=== PATIENT | male | born 1955 | race Caucasian/White ===

== ENCOUNTER 2016-10-18 14:13 | Emergency (ER) | payer MEDICARE ==
[2016-10-18 14:21] VITALS: O2SAT 97
[2016-10-18 14:58] LABS: Mean Cell Volume 90.2 fl (78-100); Mean Corpuscular Hemoglobin 29.6 pg (26-32); Mean Platelet Volume 8.8 fl (6-9.5); Platelet Count 181 K/mm3 (150-450); Red Blood Count 4.39 M/mm3 (4.1-5.6); Red Cell Distribution Width 13.5 % (11.5-14.0); White Blood Count 4.8 K/mm3 (4.0-10.5)
--- NOTE | 2016-10-18 14:59 | ERPHSYRPT ---
- History of Present Illness Time Seen by Provider: 10/18/16 14:22 Source: patient Patient Subjective Stated Complaint: pt states he has been constipated for a week now, has tried laxitives, and stool softner, is taking pain meds for recent neck surgery, Triage Nursing Assessment: pt alert, walked in, resp easy, sin w/d,abd soft, Physician History: CC: constipation Hx: 61 y/o patient of Dr Raymond had neck surgery about 5 weeks ago (supposed to be in neck brace but not wearing it). He states he has had constipation for the past few weeks since taking post op pain medication. He has not had a good BM for 1 1/2 weeks. He has tried suppositories, and laxatives. Had some chunks of stool this AM. Mild blood this AM. No abd pain. Some left discomfort. Normal urination. No fever or chills. No prior abdominal surgeries. Allergies/Adverse Reactions: No Known Drug Allergies Allergy (Verified 10/18/16 14:23) Home Medications: Citalopram Hydrobromide [ceLEXa] 40 mg PO DAILY 10/18/16 [History] Duloxetine HCl [Cymbalta] 60 mg DAILY 10/18/16 [History] Finasteride 5 mg [Proscar 5 MG] 5 mg DAILY 10/18/16 [History] Fluticasone/Vilanterol [Breo Ellipta 100-25 Mcg INH] 1 ea DAILY 10/18/16 [ History] Hydrocodone Bit/Acetaminophen [[place] 5-325 Tablet] 1 ea Q6H PRN PRN 10/18/16 [ History] Insulin Aspart [NovoLOG Insulin] 10/18/16 [History] Lisinopril 40 mg DAILY 10/18/16 [History] Magnesium Oxide 400 mg [Mag-Ox 400] 400 mg DAILY 10/18/16 [History] Omeprazole 20 MG [Prilosec 20 mg] 40 mg DAILY 10/18/16 [History] Pregabalin [Lyrica 100Mg] 100 mg DAILY 10/18/16 [History] Tamsulosin HCl 0.4 mg [Flomax 0.4 MG] 0.4 mg DAILY 10/18/16 [History] Trazodone HCl [Desyrel] 150 mg HS PRN PRN 10/18/16 [History] Hx Tetanus, Diphtheria Vaccination/Date Given: Yes Hx Influenza Vaccination/Date Given: No Hx Pneumococcal Vaccination/Date Given: No Immunizations Up to Date: Yes - Review of Systems Constitutional: No Fever, No Chills Eyes: No Symptoms Ears, Nose, & Throat: No Symptoms Respiratory: No Cough, No Dyspnea Cardiac: No Chest Pain, No Palpitations Abdominal/Gastrointestinal: Constipation, No Abdominal Pain, No Nausea, No Vomiting, No Diarrhea Genitourinary Symptoms: No Dysuria Musculoskeletal: Neck Pain (post op), No Back Pain Neurological: No Focal Weakness, No Parasthesia All Other Systems: Reviewed and Negative - Past Medical History Pertinent Past Medical History: Yes Respiratory History: COPD Endocrine Medical History: Diabetes Type I Musculoskeletal History: Degenerative Disk Disease - Past Surgical History Past Surgical History: Yes Musculoskeletal: Orthopedic Surgery Other Surgical History: neck surg 2017, left leg fx - Social History Smoking Status: Former smoker Exposure to second hand smoke: Yes Drug Use: none Patient Lives Alone: No - Nursing Vital Signs Nursing Vital Signs: Initial Vital Signs Temperature 97.0 F 10/18/16 14:17 Pulse Rate 72 10/18/16 14:17 Respiratory Rate 16 10/18/16 14:17 Blood Pressure 130/80 10/18/16 14:17 O2 Sat by Pulse Oximetry 97 10/18/16 14:17 Pain Scale Pain Intensity 3 - Physical Exam General Appearance: alert Eye Exam: PERRL/EOMI Ears, Nose, Throat Exam: normal ENT inspection, moist mucous membranes Neck Exam: normal inspection, non-tender, supple Respiratory Exam: normal breath sounds, lungs clear Cardiovascular Exam: regular rate/rhythm Gastrointestinal/Abdomen Exam: soft, No tenderness, No distention, No mass, No guarding Male Genitalia Exam: normal genitalia, No hernia, No testicular tenderness Rectal Exam: normal rectal tone, other (minimal stool in vault) Back Exam: normal inspection, normal range of motion Extremity Exam: normal inspection, normal range of motion Neurologic Exam: alert, oriented x 3, cooperative Skin Exam: warm, dry SpO2 Interpretation: normal SpO2: 97 Oxygen Delivery: Room Air - Course Nursing assessment & vital signs reviewed: Yes - Radiology Exams AAS X-ray Interpretation: Teleradiologist Report (mild fecal stasis, stable nonacute hyperinflated chest) Ordered Tests: Active Orders 24 hr Category Date Time Status Clean Catch Urine Specimen STAT Care 10/18/16 14:40 Active OBSTR/ACUTE ABDOMEN SERIES Stat Exams 10/18/16 14:40 Completed CBC W DIFF Stat Lab 10/18/16 14:52 Completed CMP Stat Lab 10/18/16 14:52 Completed Manual Differential NC Stat Lab 10/18/16 14:52 Completed UA W/RFX UR CULTURE Stat Lab 10/18/16 14:52 Received Lab/Rad Data: Laboratory Result Diagrams 10/18/16 14:52 10/18/16 14:52 Laboratory Results 10/18/16 10/18/16 Range/Units 14:52 14:52 WBC 4.8 (4.0-10.5) K/mm3 RBC 4.39 (4.1-5.6) M/mm3 Hgb 13.0 (12.5-18.0) gm/dl Hct 39.6 L (42-50) % MCV 90.2 (78-100) fl MCH 29.6 (26-32) pg MCHC 32.8 (32-36) g/dl RDW 13.5 (11.5-14.0) % Plt Count 181 (150-450) K/mm3 MPV 8.8 (6-9.5) fl Sodium 143 (136-145) mEq/L Potassium 4.3 (3.5-5.1) mEq/L Chloride 106 (98-107) mEq/L Carbon Dioxide 31.6 (21-32) mEq/L Anion Gap 9.5 (5-15) MEQ/L BUN 13 (9-20) mg/dL Creatinine 1.12 (0.55-1.30) mg/dl Estimated GFR > 60 ML/MIN Glucose 81 (70-110) MG/DL Calcium 8.7 (8.5-10.1) mg/dL Total Bilirubin 0.60 (0.2-1.0) mg/dL AST 8 L (15-37) U/L ALT 14 (12-78) U/L Alkaline Phosphatase 92 (46-116) U/L Serum Total Protein 6.4 (6.4-8.2) gm/dL Albumin 3.5 (3.4-5.0) g/dL - Progress Progress Note: 10/18/16 15:00 He took off his insulin pump. It was replaced right away. 10/18/16 15:31 The patient is stable. No abd tenderness. Will use mag citrate and discussed bowel regimen with prune juice and miralax. Counseled pt/family regarding: lab results, diagnosis, need for follow-up, rad results - Departure Time of Disposition: 15:32 Departure Disposition: Home Clinical Impression: post op constipation Condition: Stable Critical Care Time: No Referrals: ADRYAN RAYMOND MD [Primary Care Provider] - Instructions: Constipation Additional Instructions: Take one bottle mag citrate today. Get miralax and prune juice to use every evening. Follow up with Dr Raymond. Return for fever, abdominal pain, passing blood, or vomiting.
[2016-10-18 15:20] LABS: ALBUMIN 3.5 g/dL (3.4-5.0); ALKALINE PHOSPHATASE 92 U/L (46-116); ANION GAP 9.5 MEQ/L (5-15); BLOOD UREA NITROGEN 13 mg/dL (9-20); CHLORIDE 106 mEq/L (98-107); Carbon Dioxide 31.6 mEq/L (21-32); Glucose 81 MG/DL (70-110); Potassium 4.3 mEq/L (3.5-5.1); SGOT/AST 8 U/L (15-37); SGPT/ALT 14 U/L (12-78); SODIUM 143 mEq/L (136-145); Total Protein 6.4 gm/dL (6.4-8.2)
--- NOTE | 2016-10-18 15:24 | XRAY ---
Indication: Left lower quadrant pain. Obstipation. Comparison: Chest exam October 11, 2015. 2 views of the abdomen nonacute and nonobstructed with mild diffuse scattered colonic fecal debris. Solid organs unremarkable. Osseous structures intact with spinal degenerative changes. Single frontal chest again demonstrates hyperinflated clear lungs with normal heart. Bony thorax intact again with mild degenerative changes. Impression: 1. Mild fecal stasis without obstruction. 2. Stable nonacute hyperinflated chest.
[2016-10-18 15:42] VITALS: BP 130/72; PULSE 84
[2016-10-18 16:18] LABS: BAND 1 % (0.0-2.0); Eosinophil 3 % (0.00-3.0); Platelet Estimate NORMAL (NORMAL); Total Cells Counted 100
== END 2016-10-18 15:57 | disposition home or self-care (01) ==
LOC: ED 14:13
DX: K59.03 Drug induced constipation (principal); T50.995A Adverse effect of other drugs, medicaments and biological substances, initial encounter; Z98.890 Other specified postprocedural states
CPT/HCPCS: 36415; 74022; 80053; 85025; 99283

== ENCOUNTER 2019-01-14 09:06 | Day surgery (SDC) | payer OTHER ==
[2019-01-14] MEDS ORDERED: Xylocaine-Mpf 2% 5 Ml Vial IJ ONE (09:07)
[2019-01-14] MEDS ORDERED: DIPRIVAN 200 MG/20 ML IV ONE (10:41)
[2019-01-14] MEDS ORDERED: Ketamine HCl 50 MG/ML ONE (10:41)
--- NOTE | 2019-01-14 12:47 | XRAY ---
Indication: Bilateral L3-S1 MBB. Intraoperative fluoroscopy was provided for 14 seconds. Single digital spot image submitted for interpretation demonstrates posterior needle tips projecting over the expected course of the left and right L3-S1 nerve roots. Correlate with intraoperative findings/report.
--- NOTE | 2019-01-14 13:02 | XRAY ---
14 seconds fluoroscopy time in surgery for bilateral L3-S1 MBB.
[2019-01-14] MEDS ORDERED: Lactated Ringers 1,000 ML IV ONE (18:20)
== END 2019-01-14 11:12 | disposition home or self-care (01) ==
LOC: SDC-PAIN 09:06
PROVIDERS: ATTEND Psychiatry & Neurology Pain Medicine
DX: M47.816 Spondylosis without myelopathy or radiculopathy, lumbar region (principal); E11.9 Type 2 diabetes mellitus without complications; J44.9 Chronic obstructive pulmonary disease, unspecified; G47.30 Sleep apnea, unspecified; C34.90 Malignant neoplasm of unspecified part of unspecified bronchus or lung; Z79.899 Other long term (current) drug therapy
CPT/HCPCS: 64493; 64494; 64495; 72020; 77002; 82962; J2704

== ENCOUNTER 2019-02-18 08:54 | Day surgery (SDC) | payer MEDICARE, OTHER ==
[2019-02-18] MEDS ORDERED: Marcaine 0.5% SDV 10 ML IJ ONE (08:55)
[2019-02-18] MEDS ORDERED: DIPRIVAN 200 MG/20 ML IV ONE (10:02)
[2019-02-18] MEDS ORDERED: Ketamine HCl 50 MG/ML ONE (10:02)
--- NOTE | 2019-02-18 11:02 | XRAY ---
Indication: Bilateral L3-S1 MBB. Intraoperative fluoroscopy was provided for 8 seconds. Single digital spot image submitted for interpretation demonstrates posterior needle tips projecting over the expected course of the left and right L3-S1 nerve roots. Correlate with intraoperative findings/report.
--- NOTE | 2019-02-18 11:06 | XRAY ---
8 seconds fluoroscopy time in surgery for bilateral L3-S1 MBB.
[2019-02-18] MEDS ORDERED: Lactated Ringers 1,000 ML IV ONE (16:00)
== END 2019-02-18 10:30 | disposition home or self-care (01) ==
LOC: SDC-PAIN 08:54
PROVIDERS: ATTEND Psychiatry & Neurology Pain Medicine
DX: M17.0 Bilateral primary osteoarthritis of knee (principal); E11.9 Type 2 diabetes mellitus without complications; G47.30 Sleep apnea, unspecified; J44.9 Chronic obstructive pulmonary disease, unspecified; Z79.899 Other long term (current) drug therapy
CPT/HCPCS: 64493; 64494; 64495; 72020; 77002; 82962; J2704

== ENCOUNTER 2019-04-08 07:55 | Day surgery (SDC) | payer MEDICARE, OTHER ==
[2019-04-08] MEDS ORDERED: Depo-Medrol 40 MG/ML IM ONE (07:56)
[2019-04-08] MEDS ORDERED: Marcaine 0.5% SDV 10 ML IJ ONE (07:56)
[2019-04-08] MEDS ORDERED: Xylocaine 1% Vial 30 ML PF IJ ONE (07:56)
[2019-04-08] MEDS ORDERED: DIPRIVAN 200 MG/20 ML IV ONE (08:55)
[2019-04-08] MEDS ORDERED: Ketamine HCl 50 MG/ML ONE (08:55)
--- NOTE | 2019-04-08 11:51 | XRAY ---
Indication: Left L3-S1 RFA. Intraoperative fluoroscopy was provided for 12 seconds. 3 digital spot images submitted for interpretation demonstrate posterior needle tips projecting over the expected course of the left L3-S1 nerve roots. Correlate with intraoperative findings/report.
--- NOTE | 2019-04-08 11:57 | XRAY ---
12 seconds fluoroscopy time in surgery for left L3-S1 RFA.
[2019-04-08] MEDS ORDERED: Lactated Ringers 1,000 ML IV ONE (13:08)
== END 2019-04-08 09:48 | disposition home or self-care (01) ==
LOC: SDC-PAIN 07:55
PROVIDERS: ATTEND Psychiatry & Neurology Pain Medicine
DX: M47.816 Spondylosis without myelopathy or radiculopathy, lumbar region (principal); M47.817 Spondylosis without myelopathy or radiculopathy, lumbosacral region; E11.9 Type 2 diabetes mellitus without complications; J44.9 Chronic obstructive pulmonary disease, unspecified; G47.30 Sleep apnea, unspecified; Z79.899 Other long term (current) drug therapy
CPT/HCPCS: 64635; 64636; 72100; 77002; 82962; J1030; J2001; J2704

== ENCOUNTER 2019-08-26 08:58 | Day surgery (SDC) | payer MEDICARE ==
[2019-08-26] MEDS ORDERED: Marcaine 0.5% SDV 10 ML IM ONE (08:59)
[2019-08-26] MEDS ORDERED: Ketamine HCl 50 MG/ML ONE (10:00)
[2019-08-26] MEDS ORDERED: DIPRIVAN 200 MG/20 ML IV ONE (10:00)
--- NOTE | 2019-08-26 11:04 | XRAY ---
Indication: Right knee genicular nerve block. Intraoperative fluoroscopy was provided for 7 seconds. 2 digital spot images submitted for interpretation demonstrate anterior needle tips projecting medial/lateral supracondylar and medial tibial plateau of the right knee. Correlate with intraoperative findings/report.
--- NOTE | 2019-08-26 11:04 | XRAY ---
Indication: Left knee genicular nerve block. Intraoperative fluoroscopy was provided for 12 seconds. 2 digital spot images submitted for interpretation demonstrate anterior needle tips projecting medial/lateral supracondylar and medial tibial plateau of the left knee. Correlate with intraoperative findings/report. Incidental proximal tibia intramedullary brenda and transverse screw.
--- NOTE | 2019-08-26 11:52 | XRAY ---
7 seconds fluoroscopy time in surgery for right genicular nerve block.
--- NOTE | 2019-08-26 12:02 | XRAY ---
12 seconds fluoroscopy time in surgery for left genicular nerve block.
[2019-08-26] MEDS ORDERED: Lactated Ringers 1,000 ML IV ONE (14:53)
== END 2019-08-26 10:30 | disposition home or self-care (01) ==
LOC: SDC-PAIN 08:58
PROVIDERS: ATTEND Psychiatry & Neurology Pain Medicine
DX: M17.0 Bilateral primary osteoarthritis of knee (principal); E11.9 Type 2 diabetes mellitus without complications; G47.30 Sleep apnea, unspecified; J44.9 Chronic obstructive pulmonary disease, unspecified; Z79.899 Other long term (current) drug therapy
CPT/HCPCS: 64454; 73560; 77002; 82962; J2704

== ENCOUNTER 2019-09-30 08:56 | Day surgery (SDC) | payer MEDICARE ==
[~2019-09-30 08:56] MED LIST: DIPRIVAN 200 MG/20 ML IV ONE; Ketamine HCl 50 MG/ML ONE
[2019-09-30] MEDS ORDERED: BUPIVACAINE 0.5% VIAL IJ ONE (08:57)
[2019-09-30] MEDS ORDERED: Xylocaine 1% Vial 30 ML PF IJ ONE (08:57)
[2019-09-30] MEDS ORDERED: Depo-Medrol 40 MG/ML IM ONE (08:57)
[2019-09-30] MEDS ORDERED: SUBLIMAZE 100 MCG/2 ML ONE (09:38)
--- NOTE | 2019-09-30 12:00 | XRAY ---
Indication: Right knee genicular nerve ablation. Intraoperative fluoroscopy was provided for 21 seconds. 2 digital spot images of the right knee submitted for interpretation demonstrates anterior needle tips projecting medial/lateral supracondylar and medial tibial plateau. Correlate with intraoperative findings/report.
--- NOTE | 2019-09-30 12:05 | XRAY ---
21 seconds fluoroscopy time in surgery for right genicular nerve ablation.
[2019-09-30] MEDS ORDERED: Lactated Ringers 1,000 ML IV ONE (14:33)
== END 2019-09-30 10:14 | disposition home or self-care (01) ==
LOC: SDC-PAIN 08:56
PROVIDERS: ATTEND Psychiatry & Neurology Pain Medicine
DX: M17.11 Unilateral primary osteoarthritis, right knee (principal); E11.9 Type 2 diabetes mellitus without complications; J44.9 Chronic obstructive pulmonary disease, unspecified; G47.30 Sleep apnea, unspecified; C34.90 Malignant neoplasm of unspecified part of unspecified bronchus or lung; Z79.899 Other long term (current) drug therapy
CPT/HCPCS: 64624; 73560; 77002; 82962; J1030; J2001; J2704; J3010

== ENCOUNTER 2022-03-17 20:06 | Emergency (ER) | payer MEDICARE ==
--- NOTE | 2022-03-17 20:18 | ERPHSYRPT ---
- History of Present Illness Time Seen by Provider: 03/17/22 20:18 Source: patient, family Exam Limitations: no limitations Physician History: This is a 66-year-old white male patient who was brought into the emergency department by the patient's spouse because of trending elevated blood sugar levels. He has been more weak than typical. 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 He was placed on a Catapres patch which the patient removed because it made him too sleepy. Patient also is on trazodone which he did take last night as well. Patient's blood sugar yesterday afternoon was 530 based on the blood draw that was performed. Upon arrival to the emergency department today was 460. His vital signs are stable. He is lethargic but arousable. He has a history of hypertension, insulin-dependent diabetes and gastroesophageal reflux disease. His states that he is going downhill over the last couple of months. Approximately 2 months ago he has had a change in his insulin medication. Patient's spouse thinks that he is been losing muscle mass and weight in the last couple months as well. He has decreased appetite. Timing/Duration: worse (Symptoms worsening over the last couple of months) Severity: moderate Associated Symptoms: weakness, No shortness of breath, No chest pain, No fever Allergies/Adverse Reactions: No Known Drug Allergies Allergy (Verified 03/17/22 20:17) Home Medications: Magnesium Oxide 400 mg [Mag-Ox 400] 250 mg PO DAILY 10/18/16 [History] Omeprazole 20 MG [Prilosec 20 mg] 40 mg PO DAILY 10/18/16 [History] Trazodone HCl [Desyrel] 150 mg PO HS PRN PRN 10/18/16 [History] lisinopriL [Lisinopril] 20 mg DAILY 10/18/16 [History] Albuterol Sulfate [Proair Digihaler] 90 mcg IH Q4HPRN PRN 03/17/22 [History] Cholecalciferol (Vitamin D3) [D3 Dots] 50 mcg PO 03/17/22 [History] Clonidine HCl Tts-1 Patch [Catapres-TTS 1 PATCH] 0.1 mg TD WEEKLY 03/17/22 [History] Cyanocobalamin (Vitamin B-12) [B-12] 500 mcg PO DAILY 03/17/22 [History] Fluticasone/Umeclidin/Vilanter [Trelegy Ellipta 200-62.5-25] 1 each IH DAILY 03/17/22 [History] Furosemide 20 mg [Lasix 20 mg] 10 mg PO DAILY 03/17/22 [History] Hydrocodone/Acetaminophen [Hydrocodone-Acetamin 10-325 mg] 1 each PO QID 03/17/22 [History] Insulin Glargine,Hum.rec.anlog [Basaglar Kwikpen U-100] 100 unit SQ DAILY 03/17/22 [History] Insulin Lispro-Aabc [Lyumjev Kwikpen U-100] 100 unit SQ DAILY 03/17/22 [History] Levothyroxine Sodium 25 Mcg [Synthroid 25 Mcg] 25 mcg PO DAILY 03/17/22 [History] Potassium Gluconate [Potassium] 595 mg PO DAILY 03/17/22 [History] Zinc Gluconate [Zinc] 50 mg PO 03/17/22 [History] clonazePAM [Clonazepam] 1 mg PO TID 03/17/22 [History] Hx Tetanus, Diphtheria Vaccination/Date Given: Yes Hx Influenza Vaccination/Date Given: No Hx Pneumococcal Vaccination/Date Given: No Travel Risk - International Travel Have you traveled outside of the country in past 3 weeks: No - Coronavirus Screening Are you exhibiting any of the following symptoms?: No Close contact with a COVID-19 positive Pt in past 14-21 Days: No - Review of Systems Constitutional: Weakness Eyes: No Symptoms Ears, Nose, & Throat: No Symptoms Respiratory: No Symptoms Cardiac: No Symptoms Abdominal/Gastrointestinal: No Symptoms Genitourinary Symptoms: No Symptoms Musculoskeletal: No Symptoms Skin: No Symptoms Neurological: Lethargy (Arousable) Psychological: No Symptoms Endocrine: No Symptoms Hematologic/Lymphatic: No Symptoms Immunological/Allergic: No Symptoms All Other Systems: Reviewed and Negative - Past Medical History Pertinent Past Medical History: Yes Respiratory History: COPD Endocrine Medical History: Diabetes Type I Musculoskeletal History: Degenerative Disk Disease - Past Surgical History Past Surgical History: Yes Musculoskeletal: Orthopedic Surgery Other Surgical History: neck surg 2017, left leg fx - Social History Smoking Status: Former smoker Exposure to second hand smoke: Yes Drug Use: none Patient Lives Alone: No - Nursing Vital Signs Nursing Vital Signs: Initial Vital Signs Temperature 97.7 F 03/17/22 20:17 Pulse Rate 101 H 03/17/22 20:17 Respiratory Rate 16 03/17/22 20:17 Blood Pressure 117/83 03/17/22 20:17 O2 Sat by Pulse Oximetry 97 03/17/22 20:17 Pain Scale Pain Intensity 0 - Physical Exam General Appearance: lethargy (But arousable), thin Eye Exam: PERRL/EOMI, eyes nml inspection Ears, Nose, Throat Exam: normal ENT inspection, moist mucous membranes Neck Exam: normal inspection, non-tender, supple, full range of motion Respiratory Exam: normal breath sounds, lungs clear, airway intact, No chest tenderness, No respiratory distress Cardiovascular Exam: regular rate/rhythm, normal heart sounds, normal peripheral pulses Gastrointestinal/Abdomen Exam: soft, normal bowel sounds, No tenderness Rectal Exam: not done Back Exam: normal inspection, normal range of motion, No CVA tenderness, No vertebral tenderness Extremity Exam: normal inspection, normal range of motion, pelvis stable Neurologic Exam: cooperative, mirror installer II-XII nml as tested, other (Patient is mildly lethargic but arousable.) Skin Exam: normal color, warm, dry Lymphatic Exam: No adenopathy SpO2 Interpretation: normal O2 Delivery: Room Air Ordered Tests: Active Orders 24 hr Category Date Time Status Cath for Specimen-Straight STAT Care 03/17/22 21:07 Active IV Insertion STAT Care 03/17/22 20:37 Active Pulse Oximetry (ED) STAT Care 03/17/22 20:37 Active HEAD WITHOUT CONTRAST [CT] Stat Exams 03/17/22 21:06 Taken CBC W DIFF Stat Lab 03/17/22 20:54 Completed CMP Stat Lab 03/17/22 20:54 Completed ETHYL ALCOHOL Stat Lab 03/17/22 21:20 Completed POCT GLUCOSE Stat Lab 03/17/22 22:18 Completed UA W/RFX UR CULTURE Stat Lab 03/17/22 21:13 Completed Urine Triage Profile Stat Lab 03/17/22 21:13 Completed Medication Summary Generic Name Dose Route Start Last Admin Trade Name Freq PRN Reason Stop Dose Admin Sodium Chloride 1,000 mls @ 100 mls/hr 03/17/22 20:45 03/17/22 22:27 Sodium Chloride 0.9% 1000 Ml IV 02/13/23 20:44 999 mls/hr .Q10H NICOLASA Infusion Sodium Chloride 1,000 mls @ 1,000 mls/hr 03/17/22 23:00 03/17/22 23:12 Sodium Chloride 0.9% 1000 Ml IV 04/16/22 23:59 Not Given .Q1H NICOLASA Discontinued Medications Generic Name Dose Route Start Last Admin Trade Name Gabi PRN Reason Stop Dose Admin Insulin Human Regular 5 unit 03/17/22 20:38 03/17/22 21:15 Insulin Regular, Human 1 Unit IV 03/17/22 20:39 5 unit STAT ONE Administration Insulin Human Regular Confirm 03/17/22 21:16 Insulin Regular, Human 1 Unit Administered 03/17/22 21:17 Dose 5 unit .ROUTE .[employer] ONE Lab/Rad Data: Laboratory Result Diagrams 03/17/22 20:54 03/17/22 20:54 Laboratory Results 03/17/22 03/17/22 03/17/22 Range/Units 22:18 21:30 21:30 WBC (4.0-10.5) x10^3/uL RBC (4.1-5.6) x10^6/uL Hgb (12.5-18.0) g/dL Hct (42-50) % MCV (78-100) fL MCH (26-32) pg MCHC (32-36) g/dL RDW (11.5-14.0) % Plt Count (150-450) x10^3/uL MPV (7.5-11.0) fL Gran % (36.0-66.0) % Immature Gran % (Auto) (0.00-0.4) % Nucleat RBC Rel Count (0.00-0.1) % Eos # (Auto) (0-0.5) x10^3/uL Immature Gran # (Auto) (0.00-0.03) x10^3u/L Absolute Lymphs (auto) (1.0-4.6) x10^3/uL Absolute Monos (auto) (0.0-1.3) x10^3/uL Absolute Nucleated RBC (0.00-0.01) x10^3u/L Lymphocytes % (24.0-44.0) % Monocytes % (0.0-12.0) % Eosinophils % (0.00-5.0) % Basophils % (0.0-0.4) % Absolute Granulocytes (1.4-6.9) x10^3/uL Basophils # (0-0.4) x10^3/uL Sodium (137-145) mmol/L Potassium (3.5-5.1) mmol/L Chloride (98-107) mmol/L Carbon Dioxide (22-30) mmol/L Anion Gap (5-15) MEQ/L BUN (9-20) mg/dL Creatinine (0.66-1.25) mg/dL Estimated GFR ML/MIN Glucose (74-106) mg/dL POC Glucometer 159 H (74 to 106) mg/dL Calcium (8.4-10.2) mg/dL Total Bilirubin (0.2-1.3) mg/dL AST (17-59) U/L ALT (0-50) U/L Alkaline Phosphatase (38-126) U/L Ammonia < 9 L (9-30) umol/L Serum Total Protein (6.3-8.2) g/dL Albumin (3.5-5.0) g/dL Urine Color (Yellow) Urine Appearance (Clear) Urine pH (4.6-8.0) Ur Specific [place] (1.005-1.030) Urine Protein (Negative) Urine Glucose (UA) (Negative) mg/dL Urine Ketones (Negative) Urine Blood (Negative) Urine Nitrite (Negative) Urine Bilirubin (Negative) Urine Urobilinogen (0.2) mg/dL Ur Leukocyte Esterase (Negative) U Hyaline Cast (Auto) (0-2) /LPF Urine Microscopic RBC (0-5) /HPF Urine Microscopic WBC (0-5) /HPF Ur Epithelial Cells (None Seen) /HPF Urine Bacteria (None Seen) /HPF Urine Culture Reflexed (NO) Urine Opiates Level (NEGATIVE) Ur Methadone (NEGATIVE) Urine Barbiturates (NEGATIVE) Ur Phencyclidine (PCP) (NEGATIVE) Urine Amphetamine (NEGATIVE) U Benzodiazepine Level (NEGATIVE) Urine Cocaine (NEGATIVE) Urine Marijuana (THC) (NEGATIVE) Ethyl Alcohol (0-10) mg/dL Influenza Type A Ag NEGATIVE (NEGATIVE) Influenza Type B Ag NEGATIVE (NEGATIVE) RSV (PCR) NEGATIVE (Negative) SARS-CoV-2 (PCR) POSITIVE A (NEGATIVE) 03/17/22 03/17/22 03/17/22 Range/Units 21:20 21:13 21:13 WBC (4.0-10.5) x10^3/uL RBC (4.1-5.6) x10^6/uL Hgb (12.5-18.0) g/dL Hct (42-50) % MCV (78-100) fL MCH (26-32) pg MCHC (32-36) g/dL RDW (11.5-14.0) % Plt Count (150-450) x10^3/uL MPV (7.5-11.0) fL Gran % (36.0-66.0) % Immature Gran % (Auto) (0.00-0.4) % Nucleat RBC Rel Count (0.00-0.1) % Eos # (Auto) (0-0.5) x10^3/uL Immature Gran # (Auto) (0.00-0.03) x10^3u/L Absolute Lymphs (auto) (1.0-4.6) x10^3/uL Absolute Monos (auto) (0.0-1.3) x10^3/uL Absolute Nucleated RBC (0.00-0.01) x10^3u/L Lymphocytes % (24.0-44.0) % Monocytes % (0.0-12.0) % Eosinophils % (0.00-5.0) % Basophils % (0.0-0.4) % Absolute Granulocytes (1.4-6.9) x10^3/uL Basophils # (0-0.4) x10^3/uL Sodium (137-145) mmol/L Potassium (3.5-5.1) mmol/L Chloride (98-107) mmol/L Carbon Dioxide (22-30) mmol/L Anion Gap (5-15) MEQ/L BUN (9-20) mg/dL Creatinine (0.66-1.25) mg/dL Estimated GFR ML/MIN Glucose (74-106) mg/dL POC Glucometer (74 to 106) mg/dL Calcium (8.4-10.2) mg/dL Total Bilirubin (0.2-1.3) mg/dL AST (17-59) U/L ALT (0-50) U/L Alkaline Phosphatase (38-126) U/L Ammonia (9-30) umol/L Serum Total Protein (6.3-8.2) g/dL Albumin (3.5-5.0) g/dL Urine Color Yellow (Yellow) Urine Appearance Clear (Clear) Urine pH 6.0 (4.6-8.0) Ur Specific [place] 1.025 (1.005-1.030) Urine Protein Negative (Negative) Urine Glucose (UA) 250 A (Negative) mg/dL Urine Ketones Negative (Negative) Urine Blood Negative (Negative) Urine Nitrite Negative (Negative) Urine Bilirubin Negative (Negative) Urine Urobilinogen 0.2 (0.2) mg/dL Ur Leukocyte Esterase Negative (Negative) U Hyaline Cast (Auto) NONE SEEN (0-2) /LPF Urine Microscopic RBC 0-2 (0-5) /HPF Urine Microscopic WBC 0-2 (0-5) /HPF Ur Epithelial Cells None Seen (None Seen) /HPF Urine Bacteria None Seen (None Seen) /HPF Urine Culture Reflexed NO (NO) Urine Opiates Level NEGATIVE (NEGATIVE) Ur Methadone NEGATIVE (NEGATIVE) Urine Barbiturates NEGATIVE (NEGATIVE) Ur Phencyclidine (PCP) NEGATIVE (NEGATIVE) Urine Amphetamine NEGATIVE (NEGATIVE) U Benzodiazepine Level NEGATIVE (NEGATIVE) Urine Cocaine NEGATIVE (NEGATIVE) Urine Marijuana (THC) NEGATIVE (NEGATIVE) Ethyl Alcohol < 10 (0-10) mg/dL Influenza Type A Ag (NEGATIVE) Influenza Type B Ag (NEGATIVE) RSV (PCR) (Negative) SARS-CoV-2 (PCR) (NEGATIVE) 03/17/22 03/17/22 Range/Units 20:54 20:54 WBC 7.9 (4.0-10.5) x10^3/uL RBC 5.07 (4.1-5.6) x10^6/uL Hgb 14.3 (12.5-18.0) g/dL Hct 45.0 (42-50) % MCV 88.8 (78-100) fL MCH 28.2 (26-32) pg MCHC 31.8 L (32-36) g/dL RDW 13.3 (11.5-14.0) % Plt Count 356 (150-450) x10^3/uL MPV 9.0 (7.5-11.0) fL Gran % 81.5 H (36.0-66.0) % Immature Gran % (Auto) 0.9 H (0.00-0.4) % Nucleat RBC Rel Count 0.0 (0.00-0.1) % Eos # (Auto) 0.06 (0-0.5) x10^3/uL Immature Gran # (Auto) 0.07 H (0.00-0.03) x10^3u/L Absolute Lymphs (auto) 0.69 L (1.0-4.6) x10^3/uL Absolute Monos (auto) 0.61 (0.0-1.3) x10^3/uL Absolute Nucleated RBC 0.00 (0.00-0.01) x10^3u/L Lymphocytes % 8.7 L (24.0-44.0) % Monocytes % 7.7 (0.0-12.0) % Eosinophils % 0.8 (0.00-5.0) % Basophils % 0.4 (0.0-0.4) % Absolute Granulocytes 6.45 (1.4-6.9) x10^3/uL Basophils # 0.03 (0-0.4) x10^3/uL Sodium 131 L (137-145) mmol/L Potassium 4.3 (3.5-5.1) mmol/L Chloride 94 L (98-107) mmol/L Carbon Dioxide 29 (22-30) mmol/L Anion Gap 12.1 (5-15) MEQ/L BUN 22 H (9-20) mg/dL Creatinine 0.78 (0.66-1.25) mg/dL Estimated GFR > 60.0 ML/MIN Glucose 505 H* (74-106) mg/dL POC Glucometer (74 to 106) mg/dL Calcium 9.4 (8.4-10.2) mg/dL Total Bilirubin 0.50 (0.2-1.3) mg/dL AST 23 (17-59) U/L ALT 17 (0-50) U/L Alkaline Phosphatase 183 H (38-126) U/L Ammonia (9-30) umol/L Serum Total Protein 7.2 (6.3-8.2) g/dL Albumin 4.1 (3.5-5.0) g/dL Urine Color (Yellow) Urine Appearance (Clear) Urine pH (4.6-8.0) Ur Specific [place] (1.005-1.030) Urine Protein (Negative) Urine Glucose (UA) (Negative) mg/dL Urine Ketones (Negative) Urine Blood (Negative) Urine Nitrite (Negative) Urine Bilirubin (Negative) Urine Urobilinogen (0.2) mg/dL Ur Leukocyte Esterase (Negative) U Hyaline Cast (Auto) (0-2) /LPF Urine Microscopic RBC (0-5) /HPF Urine Microscopic WBC (0-5) /HPF Ur Epithelial Cells (None Seen) /HPF Urine Bacteria (None Seen) /HPF Urine Culture Reflexed (NO) Urine Opiates Level (NEGATIVE) Ur Methadone (NEGATIVE) Urine Barbiturates (NEGATIVE) Ur Phencyclidine (PCP) (NEGATIVE) Urine Amphetamine (NEGATIVE) U Benzodiazepine Level (NEGATIVE) Urine Cocaine (NEGATIVE) Urine Marijuana (THC) (NEGATIVE) Ethyl Alcohol (0-10) mg/dL Influenza Type A Ag (NEGATIVE) Influenza Type B Ag (NEGATIVE) RSV (PCR) (Negative) SARS-CoV-2 (PCR) (NEGATIVE) - Progress Progress: improved Progress Note: 03/17/22 22:23 CAT scan of the head without contrast shows no acute intracranial abnormality 03/17/22 23:15 Medical decision making: This patient is more awake and alert on reexamination. He tested positive for COVID-19 infection. After evaluation of his laboratory data and CAT scan of the head, the patient has no acute issue other than hyperglycemia which is now improved. He does have some chronic narcotic use/abuse issues and he is being treated as an outpatient. I discussed plans with him and his in terms of stopping the Catapres patch altogether until he speaks with his prescribing provider. He should space out his Klonopin and trazodone medication. I told him just to take Klonopin no sooner than 12 hours before or after his trazodone medication and only take the Klonopin once a day only if needed. Patient is to drink plenty of fluids. He also needs to discuss his lack of appetite with his primary care provider and his hyperglycemic issues. Patient does not have DKA. Counseled pt/family regarding: lab results, diagnosis, need for follow-up, rad results - Departure Departure Disposition: Home Clinical Impression: Hyperglycemia, Sedated due to multiple medications, COVID-19 virus infection Condition: Stable Critical Care Time: No Referrals: MARC ARRINGTON MD [Primary Care Provider] - Follow up/PCP as directed Additional Instructions: Drink plenty of fluids. Stop your Catapres. Monitor your blood sugar closely and treat high blood sugar according to your sliding scale. Only use Klonopin once a day and no sooner than 12 hours before or 12 hours after your nighttime trazodone. Quarantine yourself for 7 days. Follow-up with your primary care physician after 7 days quarantine.
[2022-03-17 20:27] VITALS: O2SAT 97
[2022-03-17] MEDS ORDERED: HUMULIN R IV ONE (20:38)
[2022-03-17] MEDS ORDERED: Sodium Chloride 0.9% 1000 ML 1,000 ML IV SCH ×2 (20:45→23:00)
[2022-03-17 20:57] LABS: Absolute Neutrophil Ct (ANC) 6.45 x10^3/uL (1.4-6.9); Basophil (Absolute #) 0.03 x10^3/uL (0-0.4); Eosinophil % 0.8 % (0.00-5.0); Eosinophil (Absolute #) 0.06 x10^3/uL (0-0.5); Hemoglobin 14.3 g/dL (12.5-18.0); Lymphocyte (Absolute #) 0.69 x10^3/uL (1.0-4.6); Lymphocytes % 8.7 % (24.0-44.0); Mean Cell Volume 88.8 fL (78-100); Mean Corpuscular Hemoglobin 28.2 pg (26-32); Mean Corpuscular Hgb Concent. 31.8 g/dL (32-36); Monocyte (Absolute #) 0.61 x10^3/uL (0.0-1.3); Monocytes % 7.7 % (0.0-12.0); Neutrophil % 81.5 % (36.0-66.0); Platelet Count 356 x10^3/uL (150-450); Red Blood Count 5.07 x10^6/uL (4.1-5.6); Red Cell Distribution Width 13.3 % (11.5-14.0); White Blood Count 7.9 x10^3/uL (4.0-10.5)
[2022-03-17 21:11] LABS: ALBUMIN 4.1 g/dL (3.5-5.0); ALKALINE PHOSPHATASE 183 U/L (38-126); ANION GAP 12.1 MEQ/L (5-15); BLOOD UREA NITROGEN 22 mg/dL (9-20); CHLORIDE 94 mmol/L (98-107); Calcium 9.4 mg/dL (8.4-10.2); Carbon Dioxide 29 mmol/L (22-30); Creatinine 1 0.78 mg/dL (0.66-1.25); EST GLOMERULAR FILTRATION RATE > 60.0 ML/MIN; Potassium 4.3 mmol/L (3.5-5.1); SGOT/AST 23 U/L (17-59); SGPT/ALT 17 U/L (0-50); SODIUM 131 mmol/L (137-145); Total Protein 7.2 g/dL (6.3-8.2)
[2022-03-17] MEDS ORDERED: HUMULIN R ONE (21:16)
[2022-03-17 21:21] LABS: Glucose 505 mg/dL (74-106)
[2022-03-17 22:02] LABS: Bacteria None Seen /HPF (None Seen); Bilirubin Negative (Negative); Blood Negative (Negative); Epithelial Cells None Seen /HPF (None Seen); Glucose, Urine 250 mg/dL (Negative); Hyaline Casts NONE SEEN /LPF (0-2); Ketones Negative (Negative); Leukocyte Esterase Negative (Negative); Nitrite Negative (Negative); Protein,Urine Dip Negative (Negative); RBC 0-2 /HPF (0-5); Specific Gravity 1.025 (1.005-1.030); Urobilinogen 0.2 mg/dL (0.2); WBC 0-2 /HPF (0-5)
[2022-03-17 22:03] LABS: ADD URINE CULTURE? NO (NO); Appearance Clear (Clear)
[2022-03-17 22:05] LABS: Amphetamine,Urine NEGATIVE (NEGATIVE); Barbiturate,Urine NEGATIVE (NEGATIVE); Benzodiazepine,Urine NEGATIVE (NEGATIVE); Cocaine,Urine NEGATIVE (NEGATIVE); Methadone,Urine NEGATIVE (NEGATIVE); Opiate,Urine NEGATIVE (NEGATIVE); PCP,Urine NEGATIVE (NEGATIVE); THC,Urine NEGATIVE (NEGATIVE)
[2022-03-17 22:19] LABS: INFLUENZA A NEGATIVE (NEGATIVE); INFLUENZA B NEGATIVE (NEGATIVE); RESPIRATORY SYNCTIAL VIRUS NEGATIVE (Negative)
[2022-03-17 22:37] LABS: SARS-CoV-2 Xpert Express POSITIVE (NEGATIVE)
[2022-03-17 23:08] VITALS: BP 122/76; PULSE 89
--- NOTE | 2022-03-18 08:59 | XRAY ---
Indication: Acute mental status change. Elevated blood sugar. Multiple contiguous axial images obtained through the head without contrast. Comparison: October 18, 2015 Normal appearing brain parenchyma, ventricles, and bony calvarium for patient's age. Again moderate mucosal thickening of both ethmoid sinuses. Mastoid air cells are clear. Impression: Again paranasal sinuses disease. Remaining CT head without contrast exam is normal. Comment: Preliminary interpretation made by [facility]. No critical discrepancy.
== END 2022-03-17 23:33 | disposition home or self-care (01) ==
LOC: ED 20:06
DX: E10.65 Type 1 diabetes mellitus with hyperglycemia (principal); R40.0 Somnolence; U07.1 COVID-19; R53.1 Weakness; I10 Essential (primary) hypertension; Z79.891 Long term (current) use of opiate analgesic; Z79.4 Long term (current) use of insulin; Z79.899 Other long term (current) drug therapy
CPT/HCPCS: 0241U; 36000; 36415; 70450; 80053; 80307; 81001; 82140; 82947; 85025; 94760; 96374; 99284; J1815; P9612; G0480

== ENCOUNTER 2024-04-01 18:16 | Emergency (ER) | payer MEDICARE ==
[2024-04-01 18:21] VITALS: TEMP 97.7
--- NOTE | 2024-04-01 19:34 | ERPHSYRPT ---
- History of Present Illness Time Seen by Provider: 04/01/24 19:34 Source: patient, family Exam Limitations: no limitations Patient Subjective Stated Complaint: Driving and felt like sugar dropping so he stopped car. Then he went unresponsive according to . Had seizure like activity witnessed by with some increased confusion after the seizure. Triage Nursing Assessment: EMS brought patient to the ED for low blood glucose. Stated that they were called due to driving when he felt sugar dropping and when he stopped car, had seizure like activity. Patient took 2 glucose tabs and placed one in mouth prior to EMS arrival. EMS started 20g IV in the LAC and gave 12.5mg of D50. Patient is alert and oriented upon arrival to ED. Physician History: This is a 68-year-old white male patient who arrives to the emergency department by the paramedics secondary to presumed to have had a hypoglycemic episode. The patient was driving with his in the car and felt as though his blood sugar was dropping. The patient took 3 glucose tabs. The reports the patient had some mild seizure-like activity was a bit confused. EMS was then contacted and provided him with an amp of D50. Patient's blood sugar on arrival to the emergency department is 142 and he was awake alert oriented without complaints. Timing/Duration: today Severity: moderate Modifying Factors: Improves With: nothing Associated Symptoms: denies symptoms, No shortness of breath, No chest pain Allergies/Adverse Reactions: No Known Drug Allergies Allergy (Verified 04/01/24 18:36) Home Medications: Magnesium Oxide 400 mg [Mag-Ox 400] 250 mg PO DAILY 10/18/16 [History] Omeprazole 20 MG [Prilosec 20 mg] 40 mg PO DAILY 10/18/16 [History] Trazodone HCl [Desyrel] 150 mg PO HS PRN PRN 10/18/16 [History] lisinopriL [Lisinopril] 20 mg DAILY 10/18/16 [History] Albuterol Sulfate [Proair Digihaler] 90 mcg IH Q4HPRN PRN 03/17/22 [History] Cholecalciferol (Vitamin D3) [D3 Dots] 50 mcg PO DAILY 03/17/22 [History] Clonidine HCl Tts-1 Patch [Catapres-TTS 1 PATCH] 0.1 mg TD WEEKLY 03/17/22 [History] Cyanocobalamin (Vitamin B-12) [B-12] 500 mcg PO DAILY 03/17/22 [History] Fluticasone/Umeclidin/Vilanter [Trelegy Ellipta 200-62.5-25] 1 each IH DAILY 03/17/22 [History] Furosemide 20 mg [Lasix 20 mg] 10 mg PO DAILY 03/17/22 [History] Insulin Glargine,Hum.rec.anlog [Basaglar Kwikpen U-100] 100 unit SQ DAILY 03/17/22 [History] Insulin Lispro-Aabc [Lyumjev Kwikpen U-100] 100 unit SQ DAILY 03/17/22 [History] Levothyroxine Sodium 25 Mcg [Synthroid 25 Mcg] 25 mcg PO DAILY 03/17/22 [History] Potassium Gluconate [Potassium] 595 mg PO DAILY 03/17/22 [History] Zinc Gluconate [Zinc] 50 mg PO DAILY 03/17/22 [History] clonazePAM [Clonazepam] 1 mg PO TID 03/17/22 [History] Hx Tetanus, Diphtheria Vaccination/Date Given: Yes Hx Influenza Vaccination/Date Given: No Hx Pneumococcal Vaccination/Date Given: No Immunizations Up to Date: Yes Travel Risk - International Travel Have you traveled outside of the country in past 3 weeks: No - Emerging Infectious Disease Are you exhibiting symptoms associated with any current EIDs: No - Review of Systems Constitutional: No Symptoms Eyes: No Symptoms Ears, Nose, & Throat: No Symptoms Respiratory: No Symptoms Cardiac: No Symptoms Abdominal/Gastrointestinal: No Symptoms Genitourinary Symptoms: No Symptoms Musculoskeletal: No Symptoms Skin: No Symptoms Neurological: No Symptoms Psychological: No Symptoms Endocrine: No Symptoms Hematologic/Lymphatic: No Symptoms Immunological/Allergic: No Symptoms All Other Systems: Reviewed and Negative - Past Medical History Pertinent Past Medical History: Yes Respiratory History: COPD Endocrine Medical History: Diabetes Type I Musculoskeletal History: Degenerative Disk Disease - Past Surgical History Past Surgical History: Yes Musculoskeletal: Orthopedic Surgery Other Surgical History: neck surg 2017, left leg fx - Social History Smoking Status: Former smoker Exposure to second hand smoke: No Drug Use: none Patient Lives Alone: No - Social Determinants of Health Will the patient participate in the screening: Yes Do you worry about a steady place to live?: No Do you have any problems with any of the following?: No known problems In the past 12 months,have you had to go without utilities?: No Transportation Issues: No Has anyone in your support network made you feel unsafe?: No Have you or anyone in your house had to go without enough: No - Nursing Vital Signs Nursing Vital Signs: Initial Vital Signs Temperature 97.7 F 04/01/24 18:17 Pulse Rate 72 04/01/24 18:17 Respiratory Rate 18 04/01/24 18:17 Blood Pressure 164/91 04/01/24 18:17 O2 Sat by Pulse Oximetry 97 04/01/24 18:17 Pain Scale Pain Intensity 0 - Physical Exam General Appearance: no apparent distress, alert Eye Exam: PERRL/EOMI, eyes nml inspection Ears, Nose, Throat Exam: normal ENT inspection, moist mucous membranes Neck Exam: normal inspection, non-tender, supple, full range of motion Respiratory Exam: normal breath sounds, lungs clear, airway intact, No chest tenderness, No respiratory distress Cardiovascular Exam: regular rate/rhythm, normal heart sounds, normal peripheral pulses Gastrointestinal/Abdomen Exam: soft, normal bowel sounds, No tenderness Rectal Exam: not done Back Exam: normal inspection, normal range of motion, No CVA tenderness, No vertebral tenderness Extremity Exam: normal inspection, normal range of motion, pelvis stable Neurologic Exam: alert, oriented x 3, cooperative, home visitor home base head start II-XII nml as tested, normal mood/affect, nml cerebellar function, nml station & gait, sensation nml Skin Exam: normal color, warm, dry Lymphatic Exam: No adenopathy SpO2 Interpretation: normal SpO2: 97 O2 Delivery: Room Air - Course Nursing assessment & vital signs reviewed: Yes Ordered Tests: Active Orders 24 hr Category Date Time Status Child And Family Therapist STAT Care 04/01/24 19:34 Active EKG-ER Only STAT Care 04/01/24 19:34 Active IV Insertion STAT Care 04/01/24 19:34 Active Pulse Oximetry (ED) STAT Care 04/01/24 19:34 Active HEAD WITHOUT CONTRAST [CT] Stat Exams 04/01/24 19:35 Taken CBC W DIFF Stat Lab 04/01/24 19:50 Completed CMP Stat Lab 04/01/24 19:50 Completed ETHYL ALCOHOL Stat Lab 04/01/24 19:50 Completed Lactic Acid Stat Lab 04/01/24 21:58 Received Lactic Acid Urgent Lab 04/01/24 19:48 Completed MAGNESIUM Stat Lab 04/01/24 19:50 Completed POCT GLUCOSE Stat Lab 04/01/24 18:40 Completed UA W/RFX UR CULTURE Stat Lab 04/01/24 19:37 Completed Medication Summary Generic Name Dose Route Start Last Admin Trade Name Frejose PRN Reason Stop Dose Admin Sodium Chloride 500 mls @ 500 mls/hr 04/01/24 21:13 04/01/24 21:56 Sodium Chloride 0.9% 500 Ml IV 04/01/24 22:12 500 mls/hr .Q1H ONE Administration Discontinued Medications Generic Name Dose Route Start Last Admin Trade Name Freq PRN Reason Stop Dose Admin Sodium Chloride Confirm 04/01/24 21:54 Sodium Chloride 0.9% 500 Ml Administered 04/01/24 21:55 Dose 500 mls @ ud IV .STK-MED ONE Lab/Rad Data: Laboratory Result Diagrams 04/01/24 19:50 04/01/24 19:50 Laboratory Results 04/01/24 04/01/24 04/01/24 Range/Units 19:50 19:50 19:48 WBC 9.3 H (4.23-9.07) x10^3/uL RBC 5.12 (4.63-6.08) x10^6/uL Hgb 14.5 (13.7-17.5) g/dL Hct 45.6 (40.1-51.0) % MCV 89.1 (79.0-92.2) fL MCH 28.3 (25.7-32.2) pg MCHC 31.8 L (32.3-36.5) g/dL RDW 14.9 H (11.6-14.4) % Plt Count 218 (163-337) x10^3/uL MPV 9.0 L (9.4-12.4) fL Gran % 78.9 H (34.0-67.9) % Immature Gran % (Auto) 1.5 H (0.001-0.429) % Nucleat RBC Rel Count 0.0 (0.00-0.2) % Eos # (Auto) 0.30 (0.04-0.54) x10^3/uL Immature Gran # (Auto) 0.14 H (0.001-0.031) x10^3u/L Absolute Lymphs (auto) 0.83 L (1.32-3.57) x10^3/uL Absolute Monos (auto) 0.65 (0.30-0.82) x10^3/uL Absolute Nucleated RBC 0.00 (0.00-0.012) x10^3u/L Lymphocytes % 8.9 L (21.8-53.1) % Monocytes % 7.0 (5.3-12.2) % Eosinophils % 3.2 (0.8-7.0) % Basophils % 0.5 (0.2-1.2) % Absolute Granulocytes 7.31 H (1.78-5.38) x10^3/uL Basophils # 0.05 (0.01-0.08) x10^3/uL Sodium 140 (135-145) mmol/L Potassium 4.1 (3.5-5.1) mmol/L Chloride 101 (98-107) mmol/L Carbon Dioxide 29 (22-30) mmol/L Anion Gap 14.4 (5-15) MEQ/L BUN 23 H (9-20) mg/dL Creatinine 1.28 H (0.66-1.25) mg/dL Estimated GFR 61.3 ML/MIN Glucose 103 (74-106) mg/dL POC Glucometer (74 to 106) mg/dL Lactic Acid 2.4 H (0.4-2.0) Calcium 9.2 (8.4-10.2) mg/dL Magnesium 1.6 (1.6-2.3) mg/dL Total Bilirubin 1.10 (0.2-1.3) mg/dL AST 28 (17-59) U/L ALT 20 (0-50) U/L Alkaline Phosphatase 152 H (38-126) U/L Serum Total Protein 7.8 (6.3-8.2) g/dL Albumin 4.6 (3.5-5.0) g/dL Urine Color (Yellow) Urine Appearance (Clear) Urine pH (4.6-8.0) Ur Specific Buda (1.005-1.030) Urine Protein (Negative) Urine Glucose (UA) (Negative) mg/dL Urine Ketones (Negative) Urine Blood (Negative) Urine Nitrite (Negative) Urine Bilirubin (Negative) Urine Urobilinogen (0.2) mg/dL Ur Leukocyte Esterase (Negative) U Hyaline Cast (Auto) (0-2) /LPF Urine Microscopic RBC (0-5) /HPF Urine Microscopic WBC (0-5) /HPF Ur Epithelial Cells (None Seen) /HPF Urine Bacteria (None Seen) /HPF Urine Culture Reflexed (NO) Ethyl Alcohol < 10 (0-10) mg/dL 04/01/24 04/01/24 Range/Units 19:37 18:40 WBC (4.23-9.07) x10^3/uL RBC (4.63-6.08) x10^6/uL Hgb (13.7-17.5) g/dL Hct (40.1-51.0) % MCV (79.0-92.2) fL MCH (25.7-32.2) pg MCHC (32.3-36.5) g/dL RDW (11.6-14.4) % Plt Count (163-337) x10^3/uL MPV (9.4-12.4) fL Gran % (34.0-67.9) % Immature Gran % (Auto) (0.001-0.429) % Nucleat RBC Rel Count (0.00-0.2) % Eos # (Auto) (0.04-0.54) x10^3/uL Immature Gran # (Auto) (0.001-0.031) x10^3u/L Absolute Lymphs (auto) (1.32-3.57) x10^3/uL Absolute Monos (auto) (0.30-0.82) x10^3/uL Absolute Nucleated RBC (0.00-0.012) x10^3u/L Lymphocytes % (21.8-53.1) % Monocytes % (5.3-12.2) % Eosinophils % (0.8-7.0) % Basophils % (0.2-1.2) % Absolute Granulocytes (1.78-5.38) x10^3/uL Basophils # (0.01-0.08) x10^3/uL Sodium (135-145) mmol/L Potassium (3.5-5.1) mmol/L Chloride (98-107) mmol/L Carbon Dioxide (22-30) mmol/L Anion Gap (5-15) MEQ/L BUN (9-20) mg/dL Creatinine (0.66-1.25) mg/dL Estimated GFR ML/MIN Glucose (74-106) mg/dL POC Glucometer 142 H (74 to 106) mg/dL Lactic Acid (0.4-2.0) Calcium (8.4-10.2) mg/dL Magnesium (1.6-2.3) mg/dL Total Bilirubin (0.2-1.3) mg/dL AST (17-59) U/L ALT (0-50) U/L Alkaline Phosphatase (38-126) U/L Serum Total Protein (6.3-8.2) g/dL Albumin (3.5-5.0) g/dL Urine Color Yellow (Yellow) Urine Appearance Clear (Clear) Urine pH 5.0 (4.6-8.0) Ur Specific B[place] 1.015 (1.005-1.030) Urine Protein Negative (Negative) Urine Glucose (UA) 500 A (Negative) mg/dL Urine Ketones Negative (Negative) Urine Blood Negative (Negative) Urine Nitrite Negative (Negative) Urine Bilirubin Negative (Negative) Urine Urobilinogen 0.2 (0.2) mg/dL Ur Leukocyte Esterase Negative (Negative) U Hyaline Cast (Auto) NONE SEEN (0-2) /LPF Urine Microscopic RBC 0-2 (0-5) /HPF Urine Microscopic WBC 0-2 (0-5) /HPF Ur Epithelial Cells None Seen (None Seen) /HPF Urine Bacteria None Seen (None Seen) /HPF Urine Culture Reflexed NO (NO) Ethyl Alcohol (0-10) mg/dL - Progress Progress: improved, re-examined Progress Note: 04/01/24 22:12 My medical decision making and the assignment of moderate complexity to this patient's medical issue today is based on review of the patient's past medical history, review the patient's medication list, review the patient drug allergy list, history present illness and physical findings on examination. The workup in this patient includes placement of an intravenous line, infusion of normal saline solution, [id number] glucose check, CBC, CMP, urinalysis and CT scan of the head without contrast. Differential diagnosis includes but is not limited to hypoglycemic event, urinary tract infection dehydration, DKA, acute intracranial abnormality I interpreted the patient's laboratory data results. Based on the laboratory data results, there are no acute, emergent medical issues. The CT scan of the head without contrast was interpreted by the radiologist and I reviewed the impression. The impression states moderate paranasal sinus disease. Remaining head exam normal Counseled pt/family regarding: lab results, diagnosis, need for follow-up, rad results Medical Desision Making - Independent Historian Additional History obtained from: Spouse - Diagnostic Testing Diagnostic test were ordered, analyzed, and reviewed by me: Yes Radiological Interpretation: Reviewed by me, Teleradiologist Report - Risk of complications Low Risk: Low risk of morbidity from additional dx testing or treatment - Departure Departure Disposition: Home Clinical Impression: Hypoglycemic event due to diabetes Condition: Stable Critical Care Time: No Referrals: MARC ARRINGTON MD [Primary Care Provider] - Follow up/PCP as directed Additional Instructions: Drink plenty of clear liquids. Monitor your blood sugar closely. Do not use your diabetic medication until you are eating well and able to monitor your blood sugar closely. Call your prescribing provider tomorrow, 04/02/2024, to make arrangements for follow-up appointment for further evaluation and management.
[2024-04-01 19:52] LABS: Absolute Neutrophil Ct (ANC) 7.31 x10^3/uL (1.78-5.38); BASOPHIL % 0.5 % (0.2-1.2); Basophil (Absolute #) 0.05 x10^3/uL (0.01-0.08); Eosinophil % 3.2 % (0.8-7.0); Hematocrit 45.6 % (40.1-51.0); Hemoglobin 14.5 g/dL (13.7-17.5); IMMATURE GRAN # 0.14 x10^3u/L (0.001-0.031); IMMATURE GRAN % 1.5 % (0.001-0.429); Lymphocyte (Absolute #) 0.83 x10^3/uL (1.32-3.57); Lymphocytes % 8.9 % (21.8-53.1); Mean Cell Volume 89.1 fL (79.0-92.2); Mean Corpuscular Hemoglobin 28.3 pg (25.7-32.2); Mean Corpuscular Hgb Concent. 31.8 g/dL (32.3-36.5); Monocyte (Absolute #) 0.65 x10^3/uL (0.30-0.82); Neutrophil % 78.9 % (34.0-67.9); Platelet Count 218 x10^3/uL (163-337); Red Blood Count 5.12 x10^6/uL (4.63-6.08); Red Cell Distribution Width 14.9 % (11.6-14.4); White Blood Count 9.3 x10^3/uL (4.23-9.07)
[2024-04-01 20:09] LABS: Appearance Clear (Clear); Bacteria None Seen /HPF (None Seen); Bilirubin Negative (Negative); Blood Negative (Negative); Epithelial Cells None Seen /HPF (None Seen); Glucose, Urine 500 mg/dL (Negative); Hyaline Casts NONE SEEN /LPF (0-2); Ketones Negative (Negative); Leukocyte Esterase Negative (Negative); Nitrite Negative (Negative); Protein,Urine Dip Negative (Negative); RBC 0-2 /HPF (0-5); Specific Gravity 1.015 (1.005-1.030); Urobilinogen 0.2 mg/dL (0.2); WBC 0-2 /HPF (0-5)
[2024-04-01 20:36] LABS: ALBUMIN 4.6 g/dL (3.5-5.0); ALKALINE PHOSPHATASE 152 U/L (38-126); ANION GAP 14.4 MEQ/L (5-15); BLOOD UREA NITROGEN 23 mg/dL (9-20); CHLORIDE 101 mmol/L (98-107); Calcium 9.2 mg/dL (8.4-10.2); Carbon Dioxide 29 mmol/L (22-30); Creatinine 1 1.28 mg/dL (0.66-1.25); EST GLOMERULAR FILTRATION RATE 61.3 ML/MIN; ETHYL ALCOHOL < 10 mg/dL (0-10); Glucose 103 mg/dL (74-106); MAGNESIUM 1.6 mg/dL (1.6-2.3); Potassium 4.1 mmol/L (3.5-5.1); SGOT/AST 28 U/L (17-59); SGPT/ALT 20 U/L (0-50); SODIUM 140 mmol/L (135-145); Total Protein 7.8 g/dL (6.3-8.2)
[2024-04-01] MEDS ORDERED: Sodium Chloride 0.9% 500 ML 500 ML IV ONE (21:54)
[2024-04-01] MEDS: Sodium Chloride 0.9% 500 ML 500 ML IV ONE (21:56)
[2024-04-01 22:14] VITALS: BP 152/85; PULSE 65; RESP 12; O2SAT 97
--- NOTE | 2024-04-02 08:33 | XRAY ---
Indication: Seizure-like activity. Multiple contiguous axial images obtained through the head without contrast. Comparison: March 17, 2022 Again age-appropriate global atrophy. No acute intracranial hemorrhage, abnormal extra-axial fluid collection, or mass effect. Fourth ventricle is midline without hydrocephalus. Nunez-white matter differentiation preserved. Bony calvarium intact. Again mild/moderate mucoperiosteal thickening paranasal sinuses greatest ethmoid sinuses. Mastoid air cells are clear. Impression: Again paranasal sinus disease. Remaining CT head without contrast exam is again negative.
== END 2024-04-01 22:37 | disposition home or self-care (01) ==
LOC: ED 18:16
DX: E10.649 Type 1 diabetes mellitus with hypoglycemia without coma (principal); Z79.899 Other long term (current) drug therapy
CPT/HCPCS: 36415; 70450; 80053; 81001; 82077; 82947; 83605; 83735; 85025; 93005; 93041; 94760; 96374; 99284; 99285

== ENCOUNTER 2024-11-11 16:36 | Emergency (ER) | payer MEDICARE ==
[2024-11-11 16:58] VITALS: TEMP 97.5
--- NOTE | 2024-11-11 17:35 | ERPHSYRPT ---
- History of Present Illness Source: patient Exam Limitations: no limitations Patient Subjective Stated Complaint: patient states he isn't feeling very well Triage Nursing Assessment: patient sent to us from [facility] said his 0. o2 was satting in the 80's, patient is alert and orientedx4, able to ambulate by self, pupils perrla 3, lungs sounds diminished, skin is warm and dry. [facility] he thinks their machine is brokwe says he feels lousy but not that bad. Timing/Duration: yesterday Severity: mild Associated Symptoms: No nausea, No shortness of breath, No heartburn, No chest pain, No fever Hx Tetanus, Diphtheria Vaccination/Date Given: Yes Hx Influenza Vaccination/Date Given: No Hx Pneumococcal Vaccination/Date Given: No Immunizations Up to Date: Yes <MORE SUTTON - Last Filed: 11/11/24 17:37> <SARA HAYES - Last Filed: 11/11/24 21:35> - History of Present Illness Time Seen by Provider: 11/11/24 17:21 Physician History: 69 -year-old male presents to the emergency room complaining of low oxygen level patient was sent here from clinic for a oxygen level in the low 90s patient reports the past couple days he has been feeling fatigued generalized weakness denies any chest pain or shortness of breath denies any cough congestion denies any nausea vomiting but did report some diarrhea patient is now in ED for further eval (MORE SUTTON) Allergies/Adverse Reactions: No Known Drug Allergies Allergy (Verified 09/06/24 05:51) Home Medications: Omeprazole 20 MG [Prilosec 20 mg] 40 mg PO DAILY 10/18/16 [History] lisinopriL [Lisinopril] 20 mg DAILY 10/18/16 [History] Albuterol Sulfate [Proair Digihaler] 90 mcg IH Q4HPRN PRN 03/17/22 [History] Fluticasone/Umeclidin/Vilanter [Trelegy Ellipta 200-62.5-25] 1 each IH DAILY 03/17/22 [History] Insulin Glargine,Hum.rec.anlog [Dangagldriss Adams U-100] 100 unit SQ DAILY 03/17/22 [History] Insulin Lispro-Aabc [Lenin Adams U-100] 100 unit SQ DAILY 03/17/22 [History] Levothyroxine Sodium 25 Mcg [Synthroid 25 Mcg] 50 mcg PO DAILY 03/17/22 [History] Travel Risk - International Travel Have you traveled outside of the country in past 3 weeks: No - Emerging Infectious Disease Are you exhibiting symptoms associated with any current EIDs: No <MORE SUTTON - Last Filed: 11/11/24 17:37> - Review of Systems Constitutional: No Fever, No Chills Eyes: No Symptoms Ears, Nose, & Throat: No Symptoms Respiratory: No Cough, No Dyspnea Cardiac: No Chest Pain, No Edema, No Syncope Abdominal/Gastrointestinal: Diarrhea, No Abdominal Pain, No Nausea, No Vomiting Genitourinary Symptoms: No Dysuria Musculoskeletal: No Back Pain, No Neck Pain Skin: No Rash Neurological: No Dizziness, No Focal Weakness, No Sensory Changes Psychological: No Symptoms Endocrine: No Symptoms All Other Systems: Reviewed and Negative <MORE SUTTON - Last Filed: 11/11/24 17:37> - Past Medical History Pertinent Past Medical History: Yes Respiratory History: COPD Endocrine Medical History: Diabetes Type I Musculoskeletal History: Degenerative Disk Disease - Past Surgical History Past Surgical History: Yes Musculoskeletal: Orthopedic Surgery Other Surgical History: neck surg 2017, left leg fx - Social History Smoking Status: Former smoker Exposure to second hand smoke: No Drug Use: none - Social Determinants of Health Will the patient participate in the screening: Yes Do you worry about a steady place to live?: No Do you have any problems with any of the following?: No known problems In the past 12 months,have you had to go without utilities?: No Transportation Issues: No Has anyone in your support network made you feel unsafe?: No Have you or anyone in your house had to go w/o enough food: No <MORE SUTTON - Last Filed: 11/11/24 17:37> - Physical Exam General Appearance: no apparent distress, alert Eye Exam: PERRL/EOMI, eyes nml inspection Ears, Nose, Throat Exam: normal ENT inspection, TMs normal, pharynx normal, moist mucous membranes Neck Exam: normal inspection, non-tender, supple, full range of motion Respiratory Exam: normal breath sounds, lungs clear, No respiratory distress Cardiovascular Exam: regular rate/rhythm, normal heart sounds, normal peripheral pulses Gastrointestinal/Abdomen Exam: soft, normal bowel sounds, No tenderness, No mass Back Exam: normal inspection, normal range of motion, No CVA tenderness, No vertebral tenderness Extremity Exam: normal inspection, normal range of motion, pelvis stable Neurologic Exam: alert, oriented x 3, cooperative, normal mood/affect, nml cerebellar function, nml station & gait, sensation nml, No motor deficits Skin Exam: normal color, warm, dry, No rash Lymphatic Exam: No adenopathy SpO2: 92 <MORE SUTTON - Last Filed: 11/11/24 17:37> - Nursing Vital Signs Nursing Vital Signs: Initial Vital Signs Temperature 97.5 F 11/11/24 16:52 Pulse Rate 76 11/11/24 16:52 Respiratory Rate 16 11/11/24 16:52 Blood Pressure 101/72 11/11/24 16:52 O2 Sat by Pulse Oximetry 95 11/11/24 16:52 Pain Scale Pain Intensity 0 - Course Nursing assessment & vital signs reviewed: Yes <MORE SUTTON - Last Filed: 11/11/24 17:37> Ordered Tests: Active Orders 24 hr Category Date Time Status Personal Banking Assistant STAT Care 11/11/24 17:30 Active EKG-ER Only STAT Care 11/11/24 17:29 Active IV Insertion STAT Care 11/11/24 17:29 Active CHEST WITH CONTRAST [CT] Stat Exams 11/11/24 18:18 Taken CBC W DIFF Stat Lab 11/11/24 17:40 Completed CMP Stat Lab 11/11/24 17:44 Completed D-DIMER QUANTITATIVE Stat Lab 11/11/24 17:44 Completed Lactic Acid Stat Lab 11/11/24 17:42 Completed MAGNESIUM Stat Lab 11/11/24 17:44 Completed TROPONIN Q3H Lab 11/11/24 17:44 Completed TROPONIN Q3H Lab 11/11/24 20:35 Completed TROPONIN Q3H Lab 11/11/24 23:30 Ordered Respiratory Therapy Assessment DAILY RT 11/11/24 19:29 Active Medication Summary Generic Name Dose Route Start Last Admin Trade Name Freq PRN Reason Stop Dose Admin Albuterol Sulfate 7.5 mg 11/11/24 20:15 11/11/24 20:12 Albuterol Solution 2.5 Mg/0.5 Ml Ud Solution IH 12/11/24 20:14 7.5 mg UD NICOLASA Administration Magnesium Sulfate/Dextrose 100 mls @ 100 mls/hr 11/11/24 20:00 11/11/24 20:48 Magnesium 1 Gm / 100 Ml D5w IV 11/11/24 21:59 100 mls/hr Q1H NICOLASA Administration Discontinued Medications Generic Name Dose Route Start Last Admin Trade Name Shineq PRN Reason Stop Dose Admin Albuterol Sulfate 2.5 mg 11/11/24 18:17 11/11/24 19:20 Albuterol Sulfate 2.5 Mg/3 Ml [facility] 11/11/24 18:18 2.5 mg STAT ONE Administration Albuterol Sulfate 7.5 mg 11/11/24 19:55 11/11/24 20:08 Albuterol Sulfate 2.5 Mg/3 Ml Critical [facility] hospital 11/11/24 19:56 Not Given STAT ONE Albuterol/Ipratropium 3 ml 11/11/24 19:55 11/11/24 20:12 Ipratropium/Albuterol Sulfate 3 Ml Ampul.Critical access hospital 11/11/24 19:56 3 ml STAT ONE Administration Methylprednisolone Sodium 0 mg 11/11/24 21:13 11/11/24 21:24 Succinate 125 mg/ Sterile IV 11/11/24 21:14 125 mg Water 2 ml STAT ONE Administration Lab/Rad Data: Laboratory Result [facility] 11/11/24 17:40 11/11/24 17:44 Laboratory Results 11/11/24 11/11/24 11/11/24 Range/Units 20:35 17:44 17:44 WBC (4.23-9.07) x10^3/uL RBC (4.63-6.08) x10^6/uL Hgb (13.7-17.5) g/dL Hct (40.1-51.0) % MCV (79.0-92.2) fL MCH (25.7-32.2) pg MCHC (32.3-36.5) g/dL RDW (11.6-14.4) % Plt Count (163-337) x10^3/uL MPV (9.4-12.4) fL Gran % (34.0-67.9) % Immature Gran % (Auto) (0.001-0.429) % Nucleat RBC Rel Count (0.00-0.2) % Eos # (Auto) (0.04-0.54) x10^3/uL Immature Gran # (Auto) (0.001-0.031) x10^3u/L Absolute Lymphs (auto) (1.32-3.57) x10^3/uL Absolute Monos (auto) (0.30-0.82) x10^3/uL Absolute Nucleated RBC (0.00-0.012) x10^3u/L Lymphocytes % (21.8-53.1) % Monocytes % (5.3-12.2) % Eosinophils % (0.8-7.0) % Basophils % (0.2-1.2) % Absolute Granulocytes (1.78-5.38) x10^3/uL Basophils # (0.01-0.08) x10^3/uL D-Dimer 0.40 (0.0-0.50) mg/L Sodium (135-145) mmol/L Potassium (3.5-5.1) mmol/L Chloride (98-107) mmol/L Carbon Dioxide (22-30) mmol/L Anion Gap (5-15) MEQ/L BUN (9-20) mg/dL Creatinine (0.66-1.25) mg/dL Estimated GFR ML/MIN Glucose (74-106) mg/dL Lactic Acid (0.4-2.0) Calcium (8.4-10.2) mg/dL Magnesium (1.6-2.3) mg/dL Total Bilirubin (0.2-1.3) mg/dL AST (17-59) U/L ALT (0-50) U/L Alkaline Phosphatase (38-126) U/L Troponin I < 0.012 < 0.012 (0.000-0.033) ng/mL Serum Total Protein (6.3-8.2) g/dL Albumin (3.5-5.0) g/dL 11/11/24 11/11/24 11/11/24 Range/Units 17:44 17:42 17:40 WBC 5.4 (4.23-9.07) x10^3/uL RBC 4.79 (4.63-6.08) x10^6/uL Hgb 13.7 (13.7-17.5) g/dL Hct 43.1 (40.1-51.0) % MCV 90.0 (79.0-92.2) fL MCH 28.6 (25.7-32.2) pg MCHC 31.8 L (32.3-36.5) g/dL RDW 13.5 (11.6-14.4) % Plt Count 205 (163-337) x10^3/uL MPV 9.2 L (9.4-12.4) fL Gran % 72.1 H (34.0-67.9) % Immature Gran % (Auto) 0.6 H (0.001-0.429) % Nucleat RBC Rel Count 0.0 (0.00-0.2) % Eos # (Auto) 0.16 (0.04-0.54) x10^3/uL Immature Gran # (Auto) 0.03 (0.001-0.031) x10^3u/L Absolute Lymphs (auto) 0.73 L (1.32-3.57) x10^3/uL Absolute Monos (auto) 0.54 (0.30-0.82) x10^3/uL Absolute Nucleated RBC 0.00 (0.00-0.012) x10^3u/L Lymphocytes % 13.6 L (21.8-53.1) % Monocytes % 10.1 (5.3-12.2) % Eosinophils % 3.0 (0.8-7.0) % Basophils % 0.6 (0.2-1.2) % Absolute Granulocytes 3.86 (1.78-5.38) x10^3/uL Basophils # 0.03 (0.01-0.08) x10^3/uL D-Dimer (0.0-0.50) mg/L Sodium 137 (135-145) mmol/L Potassium 4.8 (3.5-5.1) mmol/L Chloride 97 L (98-107) mmol/L Carbon Dioxide 29 (22-30) mmol/L Anion Gap 16.1 H (5-15) MEQ/L BUN 19 (9-20) mg/dL Creatinine 1.31 H (0.66-1.25) mg/dL Estimated GFR 59.3 ML/MIN Glucose 213 H (74-106) mg/dL Lactic Acid 1.3 (0.4-2.0) Calcium 9.1 (8.4-10.2) mg/dL Magnesium 1.5 L (1.6-2.3) mg/dL Total Bilirubin 1.00 (0.2-1.3) mg/dL AST 21 (17-59) U/L ALT 13 (0-50) U/L Alkaline Phosphatase 135 H (38-126) U/L Troponin I (0.000-0.033) ng/mL Serum Total Protein 6.9 (6.3-8.2) g/dL Albumin 4.2 (3.5-5.0) g/dL <MORE SUTTON - Last Filed: 11/11/24 17:37> <SARA HAYES - Last Filed: 11/11/24 21:35> - Progress Progress Note: 11/11/24 17:37 Patient x-ray done at the outpatient clinic prior to arrival patient refused his chest x-ray today however x-ray today showed COPD changes grossly stable CT showing spiculated mass 11/11/24 17:38 (MORE SUTTON) 11/11/24 20:04 This is a 69-year-old male with a known history of COPD former smoker who was seen by my physician partner earlier today for COPD exacerbation with CTA chest ordered and pending. Negative chest x-ray. Patient was given nebulizer and steroid. I have reexamined the patient and reobtained history concurrent with that provided above. He is having diminished breath sounds although he is saturating 98% on room air with deep inspirations of 94% at rest. Will give a trial of 1 hour continuous neb and 2 g of magnesium for smooth muscle relaxation and bronchodilation and also noted hypomagnesemia on laboratory studies. Laboratory studies otherwise unremarkable. Will reassess after breathing treatment. Patient would like to go home tonight as he is doing well and feeling much better, but I feel that his care can be maximized prior to discharge. 11/11/24 20:36 EKG 7:07 PM normal sinus rhythm [address] elevation. There is slight J- point elevation inferiorly. Patient is no anginal equivalent symptoms. No chest pain. There are no reciprocal changes. 11/11/24 21:14 9:14 PM. Patient reexamined and he is now moving air with some scattered wheezing which is much improved. In chart review it is noted that he was not given Solu-Medrol steroid prior. He is on his magnesium dosing currently has finished his hour-long neb. Will add Solu-Medrol for anti-inflammatory. I feel the patient is doing well saturating 95% on room air feeling much better. He certainly has what appears to be significant COPD, but he is tolerating room air well and he has a primary care to follow-up with. He will have outpatient prednisone and breathing treatments. Will plan for discharge after Solu-Medrol and magnesium. (SARA HAYES) <MORE SUTTON - Last Filed: 11/11/24 17:37> - Departure Departure Disposition: Home Critical Care Time: No <SARA HAYES - Last Filed: 11/11/24 21:35> - Departure Clinical Impression: COPD exacerbation Condition: Stable Referrals: MARC ARRINGTON MD [Primary Care Provider, [facility]] - Follow up/PCP as directed Instructions: Chronic Obstructive Pulmonary Disease Additional Instructions: You have been evaluated for an emergency medical condition. At this time, given the current history and events presented, the examination conducted and any possible testing you may have had, you have been given a presumptive diagnosis based on the current information is obtained. Your discharge diagnosis is presumptive and not necessarily definitive. Medical conditions present in various stages very often without all the symptoms or findings described in medical literature. Other symptoms, concerns or conditions may arise and your diagnoses may evolve or change and/or your condition could potentially worsen after the time of disposition or discharge. You have been given a presumptive diagnosis and your condition appears to be stable, but your medical issues can change or worsen. If there is worsening of your condition including difficulty breathing, swallowing, speaking, chest pain or pressure, intractable vomiting, worsening or changing mental status, numbness, tingling or weakness of your body or arms or legs, thoughts or plans of harming yourself or others, or any other concerns, call 911 and/or return immediately to the closest emergency department. It is important you follow-up with your doctor on the next business day. Call your doctor, or the referral provided if you do not have a doctor, when they open to schedule a follow-up appointment in the next 1 or latest 2 days. Please refer to the attached sheet. If you do not have primary care doctor, you can call the [facility] referral line at [phone]. Return immediately if your symptoms worsen or if you are unable to obtain further care. My team and I thank you for choosing the [facility] emergency healthcare needs. We wish you a speedy recovery. Very respectfully, Dr. Aspen Hayes M.D. [employer] Board-certified Emergency Physician Prescriptions: Albuterol Sulfate 2.5 mg IH Q4-6HPRN PRN #30 PRN Reason: Shortness Of Breath Prednisone 20 mg [Deltasone 20 mg] 40 mg PO DAILY 5 Days #10 tablet
[2024-11-11 17:48] LABS: BASOPHIL % 0.6 % (0.2-1.2); Basophil (Absolute #) 0.03 x10^3/uL (0.01-0.08); Eosinophil (Absolute #) 0.16 x10^3/uL (0.04-0.54); Hematocrit 43.1 % (40.1-51.0); Hemoglobin 13.7 g/dL (13.7-17.5); IMMATURE GRAN # 0.03 x10^3u/L (0.001-0.031); IMMATURE GRAN % 0.6 % (0.001-0.429); Lymphocyte (Absolute #) 0.73 x10^3/uL (1.32-3.57); Mean Corpuscular Hemoglobin 28.6 pg (25.7-32.2); Mean Corpuscular Hgb Concent. 31.8 g/dL (32.3-36.5); Monocyte (Absolute #) 0.54 x10^3/uL (0.30-0.82); NUCLEATED RBC # 0.00 x10^3u/L (0.00-0.012); NUCLEATED RBC % 0.0 % (0.00-0.2); Platelet Count 205 x10^3/uL (163-337); Red Blood Count 4.79 x10^6/uL (4.63-6.08); White Blood Count 5.4 x10^3/uL (4.23-9.07)
[2024-11-11 18:09] LABS: Calcium 9.1 mg/dL (8.4-10.2); Carbon Dioxide 29.0 mmol/L (22-30); Creatinine 1 1.31 mg/dL (0.66-1.25); EST GLOMERULAR FILTRATION RATE 59.3 ML/MIN; Glucose 213.0 mg/dL (74-106); Potassium 4.8 mmol/L (3.5-5.1); SGOT/AST 21.0 U/L (17-59); SGPT/ALT 13.0 U/L (0-50); Total Protein 6.9 g/dL (6.3-8.2)
[2024-11-11] MEDS: PROVENTIL 2.5 MG/3 ML NEB IH ONE ×2 (19:20→20:08)
[2024-11-11] MEDS ORDERED: PROVENTIL Solution 2.5 MG/0.5 ML IH ONE (20:02)
[2024-11-11] MEDS ORDERED: DUONEB 0.5-3 MG/3 ml Neb IH ONE (20:02)
[2024-11-11] MEDS ORDERED: Magnesium 1 Gm / 100 Ml D5W*** 100 ML IV ONE ×2 (20:03→20:47)
[2024-11-11] MEDS: Magnesium 1 Gm / 100 Ml D5W*** 100 ML IV SCH (20:04)
[2024-11-11] MEDS: DUONEB 0.5-3 MG/3 ml Neb IH ONE (20:12)
[2024-11-11] MEDS: PROVENTIL Solution 2.5 MG/0.5 ML IH SCH (20:12)
[2024-11-11 21:21] VITALS: BP 105/54; PULSE 95; RESP 16; O2SAT 93
[2024-11-11] MEDS: solu-MEDROL 125 MG, Sterile H2O 10 ml 2 ML IV ONE (21:24)
--- NOTE | 2024-11-12 08:47 | XRAY ---
Indication: Short of breath. COPD. Mass. Multiple contiguous axial images obtained through the chest using 80 cc Isovue 370 contrast and PE protocol. Comparison: September 06, 2024 Good opacification pulmonary arteries to include lobar and segmental branches. Again no pulmonary embolus. Heart not enlarged. Aorta remains minimally arteriosclerotic without aneurysm/dissection. No pathologic mediastinal/hilar lymphadenopathy. Stable small hiatal hernia. Lungs demonstrates grossly stable appearing biapical and right suprahilar noncalcified spiculated masslike opacities again largest left apex measuring at least 1.6 x 6.0 cm. Posterior left lower lobe demonstrates stable 6 mm noncalcified spiculated nodularity. Above findings concerning for malignancy. Remaining lungs again demonstrates mild diffuse pulmonary emphysema with mild scattered fibrosis/scarring. No infiltrate or effusion. Bony thorax intact again with osteopenia and mild/moderate degenerative changes throughout spine. Limited upper abdomen again demonstrates mild fatty liver. Impression: 1. Continued negative pulmonary embolus. 2. Again suspicious biapical and right suprahilar noncalcified spiculated masslike opacities grossly unchanged. Also stable subcentimeter left lower lobe noncalcified spiculated nodularity. Rule out malignancy. PET-CT may yield further information if not already performed. 3. Chronic findings including pulmonary emphysema, pulmonary fibrosis/scarring, arteriosclerotic disease, hiatal hernia, chronic bony findings, and fatty liver.
== END 2024-11-11 21:38 | disposition home or self-care (01) ==
LOC: ED 16:36
DX: J44.1 Chronic obstructive pulmonary disease with (acute) exacerbation (principal); R53.1 Weakness; E10.9 Type 1 diabetes mellitus without complications; Z79.52 Long term (current) use of systemic steroids; Z79.899 Other long term (current) drug therapy